=== PATIENT | male | born 1990 | race Caucasian/White ===

== ENCOUNTER 2021-07-07 14:24 | Emergency (ER) | payer OTHER ==
[2021-07-07] MEDS ORDERED: NORCO 5-325 TA1 EACH PO (19:14)
== END 2021-07-07 20:30 | disposition home or self-care (01) ==
LOC: FER 14:24
DX: S82.141A Displaced bicondylar fracture of right tibia, initial encounter for closed fracture (principal); S82.251A Displaced comminuted fracture of shaft of right tibia, initial encounter for closed fracture; Z88.0 Allergy status to penicillin; W19.XXXA Unspecified fall, initial encounter; Y92.149 Unspecified place in prison as the place of occurrence of the external cause
CPT/HCPCS: 73564; 73700